=== PATIENT | female | born 1945 | race Asian ===

== ENCOUNTER 2018-08-23 13:41 | Outpatient (CLI) | payer MEDICARE ==
--- NOTE | 2018-08-23 15:37 | CT ---
CT BRAIN WITHOUT CONTRAST: HISTORY: I62.00. COMPARISON: None. FINDINGS: There appears to be an old right supraorbital forehead soft tissue contusion and hematoma which is re solving. No acute intracranial hemorrhage or infarct. No midline shift. No mass effect. Calvarium is intact. The paranasal sinuses and mastoids are clear. Mild hyperostosis of the inner t able of the frontal calvarium bilaterally. IMPRESSION: Right forehead resolving contusion and hematoma without acute intracranial hemorrhage or infarct. POS: HOME
== END 2018-08-23 13:42 | disposition home or self-care (01) ==
LOC: CT 13:41 → EDBD 14:30
PROVIDERS: ATTEND Neurological Surgery
DX: I62.00 Nontraumatic subdural hemorrhage, unspecified (principal)
CPT/HCPCS: 70450